=== PATIENT | female | born 1995 | race Caucasian/White ===

== ENCOUNTER 2019-11-03 19:28 | Emergency (ER) | payer SELFPAY ==
[~2019-11-03] VITALS: Ht 167.6 cm; Wt 54.4 kg
--- NOTE | 2019-11-03 19:40 | NUR ---
PT BIBRA C/O RLQ PAIN X2 DAYS. PT ALSO C/O NAUSEA. 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 PT AAOX4. RESPIRATIONS EVEN AND UNLABORED. SKIN WARM AND INTACT. VITAL SIGNS STABLE. AMBULATORY WITH STEADY GAIT. NO ACUTE DISTRESS NOTED AT THIS TIME. WILL CONTINUE TO MONITOR
[2019-11-03] MEDS ORDERED: ONDANSETRON HCL/PF 4 MG/2 ML VIAL ONE (19:54)
--- NOTE | 2019-11-03 19:57 | NUR ---
URINE COLLECTED AND SENT TO LAB
[2019-11-03] MEDS ORDERED: ONDANSETRON HCL/PF 4 MG/2 ML VIAL IVP ONE (20:00)
[2019-11-03] MEDS ORDERED: IV NS 0.9% 1,000 ML BAG IV ONE (20:00)
--- NOTE | 2019-11-03 20:05 | NUR ---
IV INITIATED L FOREARM 20G. UNABLE TO DRAW LABS FROM SITE. LABORER POULTRY HATCHERY AT BEDSIDE FOR BLOOD DRAW. IV INTACT AND PATENT, PLACED ON SALINE LOCK
[2019-11-03 20:36] LABS: BASOPHILS % (AUTO) 0.3 % (0.0-2.0); HEMATOCRIT 40 % (33-45); HEMOGLOBIN 12.9 g/dL (11.5-14.8); LYMPHOCYTES # (AUTO) 1.3 /CMM (0.8-4.8); MEAN CORPUSCULAR HGB CONC 32 g/dl (31.0-36.0); MEAN CORPUSCULAR VOLUME 90 fL (82-100); MONOCYTES # (AUTO) 0.9 /CMM (0.1-1.30); MONOCYTES % (AUTO) 8.9 % (2.0-12.0); NEUTROPHILS # (AUTO) 7.3 /CMM (1.8-8.9); NEUTROPHILS % (AUTO) 75.8 % (43.0-81.0); PLATELET COUNT (AUTO) 274 /CMM (150-450); WHITE BLOOD COUNT (AUTO) 9.6 K/uL (4.3-11.0)
[2019-11-03 20:53] LABS: APPEARANCE,URINE Clear (CLEAR); BILIRUBIN,URINE Negative (NEGATIVE); BLOOD, URINE Negative Ery/uL (NEGATIVE); COLOR,URINE Yellow (YELLOW); KETONES,URINE Negative (NEGATIVE); LEUKOCYTE ESTERASE ,URINE Negative (NEGATIVE); NITRITE, URINE Negative (NEGATIVE); PH,URINE 7.5 (5.0-8.0); PROTEIN,URINE Negative (NEGATIVE); UGLUCOSE Negative (NEGATIVE); UROBILINOGEN,URINE 0.2 EU/dL (0.2)
--- NOTE | 2019-11-03 21:09 | NUR ---
ULTRASOUND AT BEDSIDE
--- NOTE | 2019-11-03 21:56 | NUR ---
PT STILL C/O NAUSEA. PT REFUSED ZOFRAN EARLIER, STATES "IT NEVER WORKS FOR ME". PER VERBAL MD ORDER, WILL ADMINISTER 10MG IV REGLAN AND 25MG IV BENADRYL X1 NOW.
[2019-11-03] MEDS ORDERED: diphenhydrAMINE HCL 50 MG/ML VIAL ONE (21:58)
[2019-11-03] MEDS ORDERED: METOCLOPRAMIDE HCL 10 MG/2 ML VIAL ONE (21:58)
[2019-11-03] MEDS ORDERED: METOCLOPRAMIDE HCL 10 MG/2 ML VIAL IV ONE (22:00)
[2019-11-03] MEDS ORDERED: diphenhydrAMINE HCL 50 MG/ML VIAL IV ONE (22:00)
[2019-11-03 22:01] LABS: CALCIUM, SERUM 8.9 mg/dL (8.5-10.1); CREATININE 0.7 mg/dL (0.6-1.3)
[2019-11-03 22:07] LABS: ALBUMIN 3.4 g/dL (3.4-5.0); BILIRUBIN,DIRECT 0.1 mg/dL (0.0-0.2); BILIRUBIN,TOTAL 0.4 mg/dL (0.2-1.0); TOTAL PROTEIN, SERUM 7.1 g/dL (6.4-8.2)
[2019-11-03] MEDS ORDERED: METOCLOPRAMIDE HCL 10 MG TABLET ONE (22:28)
[2019-11-03] MEDS ORDERED: diphenhydrAMINE HCL 25 MG CAPSULE ONE (22:28)
[2019-11-03] MEDS ORDERED: METOCLOPRAMIDE HCL 10 MG TABLET PO ONE (22:30)
[2019-11-03] MEDS ORDERED: diphenhydrAMINE HCL 25 MG CAPSULE PO ONE (22:30)
[2019-11-03 22:31] VITALS: BP 128/79
--- NOTE | 2019-11-03 22:31 | NUR ---
IV removed. Catheter intact and site benign. Pressure and 4x4 applied to site. No bleeding noted.
--- NOTE | 2019-11-03 22:31 | NUR ---
Patient discharged to home in stable condition. Written and verbal after care instructions given. Patient verbalizes understanding of instruction and RX. Pt ambulated with steady gait. vss.
== END 2019-11-03 22:32 | disposition home or self-care (01) ==
LOC: ER 19:31
DX: R10.2 Pelvic and perineal pain (principal); F11.10 Opioid abuse, uncomplicated; R11.2 Nausea with vomiting, unspecified; R19.7 Diarrhea, unspecified; Z74.3 Need for continuous supervision; Z59.0 Homelessness
CPT/HCPCS: 36415; 76705; 76856; 80048; 80076; 81001; 83690; 84703; 85025; 96360; 99285; J1200; J2405; J2765; J7030; J8597; Q0163; 81000-TC